=== PATIENT | male | born 1995 | race Caucasian/White ===

== ENCOUNTER 2018-08-04 10:11 | Emergency (ER) | payer BC, MEDICAID ==
[2018-08-04] MEDS ORDERED: Dexamethasone 10 MG/ML VIAL ONE (10:21)
== END 2018-08-04 10:50 | disposition home or self-care (01) ==
LOC: SCSER 10:11
DX: J02.9 Acute pharyngitis, unspecified (principal); F17.210 Nicotine dependence, cigarettes, uncomplicated
CPT/HCPCS: 87081; 87430; 96372; J1100

== ENCOUNTER 2019-03-23 22:33 | Emergency (ER) | payer MEDICAID, SELFPAY ==
[2019-03-23 23:38] LABS: #Basophils 0.2 thou/uL (0.0-0.2); #Eosinphils 0.4 thou/uL (0.0-0.7); #Monocytes 1.1 thou/uL (0.11-0.59); #Neutrophils 7.4 thou/uL (1.40-6.50); %Basophils 1.2 % (0.0-1.0); %Eosinophils 3.3 % (0.0-10.0); %Lymphocytes 30.8 % (21.0-51.0); %Monocytes 8.3 % (0.0-10.0); %Neutrophils 56.4 % (42.0-75.0); Hemoglobin 15.6 g/dL (14.0-18.0); Mean Corpuscular HGB CONC 34.6 g/dL (32.0-36.0); Mean Corpuscular Volume 89.6 fL (78.0-98.0); Mean Platelet Volume 7.6 fL (7.4-10.4); Platelet Count 210 thou/uL (130-400); RBC Distribution Width 11.4 % (11.5-14.5); Red Blood Cell (RBC) Count 5.04 mill/uL (4.70-6.10); White Blood Cell (WBC) Count 13.1 thou/uL (4.8-10.8)
[2019-03-23 23:51] LABS: ALT (SGPT) 18 U/L (8-55); AST (SGOT) 19 U/L (5-34); Albumin 4.3 g/dL (3.5-5.0); Alkaline Phosphatase 84 U/L (40-150); Anion Gap 12 mmol/L (10-20); BUN (Urea Nitrogen) 12 mg/dL (8.9-20.6); Bilirubin, Total 0.3 mg/dL (0.2-1.2); Calc. Creatinine Clearance 0 mL/min (70-130); Calcium 9.5 mg/dL (7.8-10.44); Carbon Dioxide 27 mmol/L (22-29); Chloride 104 mmol/L (98-107); Estimated GFR-MDRD Greater than 90; Globulin 2.9 g/dL (2.4-3.5); Glucose 88 mg/dL (70-105); Potassium 4.2 mmol/L (3.5-5.1); Protein, Total 7.2 g/dL (6.0-8.3); Sodium 139 mmol/L (136-145)
--- NOTE | 2019-03-24 | CT ---
EXAM: CT of the cervical spine without contrast HISTORY: Headache and neck pain COMPARISON: None TECHNIQUE: Multiple contiguous axial images were obtained in a CT of the cervical spine without contr ast. Sagittal and coronal reformats were performed. FINDINGS: The vertebral bodies and intervertebral discs demonstrate normal height and alignment witho ut fracture or subluxation. No prevertebral soft tissue swelling is seen. No degenerative changes are present. The posterior facets are well aligned. Normal alignment of the skull base with the cervical spine is seen. The lung apices and cervical soft tissues are unremarkable. IMPRESSION: No evidence of acute osseous abnormality of the cervical spine.
--- NOTE | 2019-03-24 00:01 | CT ---
EXAM: CTA head without and with contrast HISTORY: Headache that began this morning COMPARISON: None TECHNIQUE: Multiple contiguous axial images were obtained and a CTA of the head without and with contrast. 3-D sagittal and coronal MIP reformats were performed. FINDINGS: The brain is normal in morphology and attenuation without focal lesions or confluent areas of infarct ion. There is no evidence of hydrocephalus, intracranial hemorrhage, or extra-axial fluid collection. Right intracranial internal carotid artery: Patent without narrowing or occlusion Right anterior cerebral artery: Patent without narrowing or occlusion Right middle cerebral artery: Patent without narrowing or occlusion Left intracranial internal carotid artery: Patent without narrowing or occlusion Left anterior cerebral artery: Patent without narrowing or occlusion Left middle cerebral artery: Patent without narrowing or occlusion No aneurysmal dilatation is seen in the anterior circulation. Right vertebral artery: Patent without narrowing or occlusion Left vertebral artery: Patent without narrowing or occlusion Basilar artery: Patent without narrowing or occlusion The posterior cerebral arteries and cerebellar arteries are patent without narrowing or occlusion. No aneurysmal dilatation is seen in the posterior circulation. IMPRESSION: No significant CTA abnormality of the head
[2019-03-24] MEDS ORDERED: diphenhydrAMINE 50 MG/ML VIAL ONE (00:55)
[2019-03-24] MEDS ORDERED: Metoclopramide HCl 10 MG/2 ML VIAL ONE (00:55)
[2019-03-24] MEDS ORDERED: Ketorolac Tromethamine 30 MG/ML VIAL ONE (00:55)
== END 2019-03-24 01:15 | disposition home or self-care (01) ==
LOC: SCSER 22:33
DX: R51 Headache (principal); F17.210 Nicotine dependence, cigarettes, uncomplicated
CPT/HCPCS: 70496; 72125; 80053; 85025; 96374; 96375; J1200; J1885; J2765

== ENCOUNTER 2021-04-14 16:03 | Emergency (ER) | payer SELFPAY | END 2021-04-14 16:15 | disposition left against medical advice (07) | LOC: ERS 16:03 | DX: Z53.21 Procedure and treatment not carried out due to patient leaving prior to being seen by health care provider (principal) ==